=== PATIENT | male | born 1990 | race Caucasian/White ===

== ENCOUNTER 2019-11-20 12:31 | Outpatient (CLI) | payer SELFPAY ==
--- NOTE | 2019-11-20 12:41 | XR_ITS ---
WS: [id number] XR lumbar spine 2-3V* [id number] REASON FOR EXAM: LOW BACK PAIN FINDINGS: A rotoscoliosis convex to the left side at seen involving the thoracolumbar area. The disc spaces and vertebral bodies are all normal. No evidence of spondylolysis or spondylolisthesis . No fractures are seen. XR/XR lumbar spine 2-3V* [id number] IMPRESSION: Thoracolumbar rotoscoliosis convex to the left side.
== END 2019-11-20 12:32 | disposition home or self-care (01) ==
LOC: RAD 12:34
PROVIDERS: Visit Provider Nurse Practitioner Family
DX: M54.5 Low back pain (principal); M41.85 Other forms of scoliosis, thoracolumbar region
CPT/HCPCS: 72100

== ENCOUNTER 2019-12-25 08:25 | Outpatient (CLI) | payer SELFPAY ==
--- NOTE | 2019-12-25 09:00 | ECG_ITS ---
NAME OF STUDY: EXERCISE SESTAMIBI STRESS TEST INDICATION: Chest Pain, EXERCISE TREADMILL STRESS ORDERING PHYSICIAN: Yaya Ly CLINICAL INFORMATION: Unknown INTERPRETATION: 1. The patient exercised for 13 minutes and 15 seconds on a Obey protocol. He reached a maximum heart rate of 174 beats per minute, which is 92 % of his maximum predicted heart rate. The test was stopped due to achieving the desired heart rate. 2. The baseline electrocardiogram reveals normal sinus rhythm with LVH by voltage criteria. 3. With exercise, there were no ST segment changes to suggest ischemia. 4. The resting blood pressure was 124/66. The maximum blood pressure was 188/59. 5. At maximum exercise, the patient achieved 17.2 METs with a rate pressure product of 318. 6. The patient experienced no chest pain or arrhythmias during the examination. CONCLUSION: 1. Normal exercise treadmill test. 2. Average exercise capacity for age. 3. Normal blood pressure response to exercise. 4. Nuclear imaging to follow Electronically Signed On 12-25-2019 15:56:51 CDT by Viraj Will M.D. [email or web address]
--- NOTE | 2019-12-25 09:01 | NMCV_ITS ---
NM candi perf SPECT r/s* [id number] Derek Roberts Age: 29 Gender: M : 1990 Exam Date: 12/25/2019 09:01 Ordering Phys: Yaya Ly NP Technologist: SHAYY Hidalgo Exam Location: [facility] Indications: Chest pain STRESS TEST Please see separate stress test report in [facility] for full findings IMAGE PROTOCOL Rest/Stress 1 Exercise Day Radiopharmaceutical Dose (mCi) Administration Site Administered by Rest: Tc-99m 11.0 IV SHAYY Hidalgo Sestamibi Stress:Tc-99m 32.4 IV SHAYY Hidalgo Sestamibi Rest: 25-Dec-2019 60 Discovery 630 Stress: 25-Dec-2019 15 Discovery 630 Radiopharmaceutical was injected at 85 % maximum heart rate. Images obtained in supine and prone position. SPECT RESULTS Technical Quality: Good Raw Data Analysis: Normal Image Corrections: Patient motion artifact - motion correction applied to stress supine images Summed Stress Score: 6 Summed Rest Score: 0 Summed Difference Score: 6 PERFUSION FINDINGS Medium-sized area of patchy decreased tracer uptake noted in basal to mid inferoseptal and basal inferior wall on the rest images which improved significantly over stress images suggestive of artifact. Small area of fixed perfusion defect noted in the apex of the left ventricle suggestive of apical thinning artifact. FUNCTIONAL RESULTS (calculated via Gated SPECT) Stress Image LV EF (%): 37 Stress EDV (mL):102 TID: 1.03 Stress ESV (mL):64 Rest Image LV EF (%): 37 FUNCTIONAL FINDINGS: There appeared to be global hypokinesis IMPRESSIONS This study is negative for ischemia. EKG segment will be documented separately. Trevor Sanchez MD (Electronically Signed) Final Date: 26 December 2019 17:44 S
[2019-12-25 10:59] VITALS: BP 138/62; PULSE 99
== END 2019-12-25 08:26 | disposition home or self-care (01) ==
LOC: RAD 08:28
PROVIDERS: PCP Nurse Practitioner Family; Visit Provider Nurse Practitioner Family
DX: R07.89 Other chest pain (principal); R06.09 Other forms of dyspnea
CPT/HCPCS: 78452; 93017; A9500

== ENCOUNTER 2020-08-21 11:25 | Outpatient (CLI) | payer SELFPAY ==
--- NOTE | 2020-08-21 11:37 | XR_ITS ---
WS: [id number] Chest 2 views, 08/21/2020 Clinical Data: DYSPNEA ON EXERTION Comparison: None. Findings: No nodules, masses or effusions are seen. The heart is normal. The pulmonary vascularity is not increased. No pneumonia or pneumothorax is seen. XR/XR chest 2V* [id number] Impression: Negative chest.
== END 2020-08-21 11:26 | disposition home or self-care (01) ==
LOC: RAD 11:30
PROVIDERS: PCP Nurse Practitioner Family; Visit Provider Family Medicine
DX: R06.09 Other forms of dyspnea (principal)
CPT/HCPCS: 71046

== ENCOUNTER 2020-09-23 10:48 | Outpatient (CLI) | payer SELFPAY ==
--- NOTE | 2020-09-23 11:23 | PFTS_ITS ---
Date of Study:09/23/20 Date of Dictation: MECHANICS: Forced vital capacity (FVC) is normal. Forced expiratory volume in one second (FEV1) is normal. FEV1/FVC is normal. FLOW VOLUME LOOP: Normal. LUNG VOLUMES: Not measured DIFFUSING CAPACITY FOR CARBON MONOXIDE: Not measured. INTERPRETATION: The postbronchodilator spirometry is normal. There is no significant postbronchodilator response. MTDD
== END 2020-09-23 10:49 | disposition home or self-care (01) ==
LOC: RT 10:50
PROVIDERS: PCP Nurse Practitioner Family; Visit Provider Nurse Practitioner Family
DX: R06.09 Other forms of dyspnea (principal)
CPT/HCPCS: 94060; J7611

== ENCOUNTER 2021-05-15 09:54 | Outpatient (CLI) | payer MEDICAID, SELFPAY ==
--- NOTE | 2021-05-15 10:15 | MR_ITS ---
WS: [id number] MRI LUMBAR SPINE NONCONTRAST HISTORY: PARESTHESIA LEFT leg, BACK PAIN LUMBAR, CHRONIC COMPARISON: None available. TECHNIQUE: Sagittal and axial multisequence imaging is submitted. Moderate increase in the thoracic kyphosis. No fracture identified. Mild LEFT curvature lumbar spine. Disc spaces and vertebral body heights are maintained. No edema or fracture. Disc spaces and vertebral body heights are well-preserved. Conus terminates normally at L1-2 disc level. L1-L2: Normal. L2-L3: Normal. L3-L4: Mild ligamentum flavum and facet arthritis. Very mild narrowing of the LEFT foramen. L4-L5: Mild ligamentum flavum hypertrophy with mild foraminal narrowing. L5-S1: Mild annular disc bulging. There is a very shallow disc protrusion in the LEFT subarticular re cess. Protrusion minimally contacts the exiting LEFT L5 nerve root but does not displace it. No signi ficant stenosis. Visualized retroperitoneum is normal. MR/MR lumbar spine wo con* [id number] IMPRESSION: 1. Very small disc protrusion in the LEFT subarticular recess of L5-S1. Very s light narrowing of the LEFT L5 subarticular recess and foramen. Very minimal di sc contact of LEFT L5 nerve root. 2. Mild LEFT foraminal narrowing at L3-4 and bilaterally at L4-5.
== END 2021-05-15 09:55 | disposition home or self-care (01) ==
PROVIDERS: PCP Family Medicine; Visit Provider Family Medicine
DX: R20.2 Paresthesia of skin (principal); M51.27 Other intervertebral disc displacement, lumbosacral region
CPT/HCPCS: 72148

== ENCOUNTER → 2021-05-28 11:06 | Outpatient (BNVA) | payer MEDICAID, SELFPAY | PROVIDERS: PCP Family Medicine; Referring Provider Family Medicine; Visit Provider Orthopaedic Surgery | DX: M54.50 Low back pain, unspecified (principal) | CPT/HCPCS: 72110 ==

== ENCOUNTER → 2021-06-03 08:44 | Outpatient (BNVA) | payer MEDICAID, SELFPAY | PROVIDERS: PCP Family Medicine; Visit Provider Anesthesiology Pain Medicine | DX: G89.29 Other chronic pain (principal); M48.062 Spinal stenosis, lumbar region with neurogenic claudication; M47.816 Spondylosis without myelopathy or radiculopathy, lumbar region; M51.16 Intervertebral disc disorders with radiculopathy, lumbar region; M79.605 Pain in left leg; F17.210 Nicotine dependence, cigarettes, uncomplicated | CPT/HCPCS: 99204 ==

== ENCOUNTER 2021-06-30 12:11 | Outpatient (RCR) | payer MEDICAID, SELFPAY | END 2021-07-17 23:59 | disposition home or self-care (01) | LOC: TPT 12:11 | PROVIDERS: PCP Family Medicine; Referring Provider Orthopaedic Surgery; Visit Provider Orthopaedic Surgery | DX: M54.50 Low back pain, unspecified (principal); G89.29 Other chronic pain | CPT/HCPCS: 97032; 97110; 97163; 97164; 97530 ==

== ENCOUNTER → 2021-09-02 10:43 | Outpatient (BNVA) | payer MEDICAID, SELFPAY | PROVIDERS: PCP Family Medicine; Visit Provider Anesthesiology Pain Medicine | DX: G89.29 Other chronic pain (principal); M79.18 Myalgia, other site; M51.17 Intervertebral disc disorders with radiculopathy, lumbosacral region; M48.062 Spinal stenosis, lumbar region with neurogenic claudication; M47.816 Spondylosis without myelopathy or radiculopathy, lumbar region; M51.16 Intervertebral disc disorders with radiculopathy, lumbar region; M79.605 Pain in left leg; F17.210 Nicotine dependence, cigarettes, uncomplicated | CPT/HCPCS: 20553; 99214; J1030; J3490 ==

== ENCOUNTER → 2021-09-18 10:38 | Outpatient (BNVA) | payer MEDICAID, SELFPAY | PROVIDERS: PCP Family Medicine; Visit Provider Internal Medicine Pulmonary Disease | DX: J44.9 Chronic obstructive pulmonary disease, unspecified (principal); R06.02 Shortness of breath; F17.210 Nicotine dependence, cigarettes, uncomplicated; Z71.6 Tobacco abuse counseling | CPT/HCPCS: 36415; 82103; 82785; 85025; 86003; 99214 ==

== ENCOUNTER → 2021-09-23 12:34 | Outpatient (BNVA) | payer MEDICAID, SELFPAY | PROVIDERS: PCP Family Medicine; Visit Provider Anesthesiology Pain Medicine | DX: G89.29 Other chronic pain (principal); M54.16 Radiculopathy, lumbar region; F17.210 Nicotine dependence, cigarettes, uncomplicated | CPT/HCPCS: 64483; 64484; J1100; J3490 ==

== ENCOUNTER → 2021-11-17 10:17 | Outpatient (BNVA) | payer MEDICAID, SELFPAY | PROVIDERS: PCP Family Medicine; Visit Provider Internal Medicine Cardiovascular Disease | DX: R06.00 Dyspnea, unspecified (principal); I10 Essential (primary) hypertension; F12.10 Cannabis abuse, uncomplicated; M51.16 Intervertebral disc disorders with radiculopathy, lumbar region; F17.210 Nicotine dependence, cigarettes, uncomplicated; L81.9 Disorder of pigmentation, unspecified; R07.89 Other chest pain | CPT/HCPCS: 93005; 99204; 99205 ==

== ENCOUNTER → 2021-11-24 11:02 | Outpatient (BNVA) | payer MEDICAID, SELFPAY | PROVIDERS: PCP Family Medicine; Visit Provider Anesthesiology Pain Medicine | DX: G89.29 Other chronic pain (principal); M51.17 Intervertebral disc disorders with radiculopathy, lumbosacral region; M51.16 Intervertebral disc disorders with radiculopathy, lumbar region; M48.062 Spinal stenosis, lumbar region with neurogenic claudication; M47.816 Spondylosis without myelopathy or radiculopathy, lumbar region; M79.605 Pain in left leg | CPT/HCPCS: 99213 ==

== ENCOUNTER 2021-12-31 19:04 | Emergency (ER) | payer MEDICAID, SELFPAY ==
[2021-12-31 19:56] VITALS: BP 135/80; PULSE 77; RESP 16; TEMP 37.1; O2SAT 98; BMI 23.6
--- NOTE | 2021-12-31 20:01 | XRR_ITS ---
PROCEDURE INFORMATION: Exam: XR Right Ankle Exam date and time: 12/31/2021 9:29 PM Age: 31 years old Clinical indication: Injury or trauma; Fall; Sprain or strain; Right; Patient HX: Patient tripped over a log and rolled ankle. C/O pain with bruising to lateral side of ankle. TECHNIQUE: Imaging protocol: Radiologic exam of the Right ankle. Views: 3 or more views. COMPARISON: No relevant prior studies available. FINDINGS: Bones/joints: Distention of the ankle joint capsule consistent with posttraumatic joint effusion and/or ligamentous disruption. Soft tissues: Soft tissue swelling over the lateral malleolus. XR/XR ankle RT min 3V* [id number] IMPRESSION: 1. Soft tissue swelling over the lateral malleolus. 2. Distention of the ankle joint capsule consistent with posttraumatic joint effusion and/or ligamentous disruption.
--- NOTE | 2021-12-31 20:01 | ED_ITS ---
HPI - Extremity Problem General: Chief complaint: Extremity Injury, Lower Stated complaint: injured R ankle Time Seen by Provider: 12/31/21 19:59 History of Present Illness: 31-year-old male patient comes in today for injury to the knee. Patient was stepping off a log when the rug rolled causing him to misstep and injured his right ankle. Patient has significant bruising and swelling to the lateral aspect of the right ankle. Patient appears well. Patient peers in mild pain. Patient appears nontoxic. Review of Systems General: Reports: 10 or more systems reviewed and unremarkable except in HPI and below Musc: Reports: extremity pain PFS ED PFSH: Medical History Chronic obstructive pulmonary disease Dyspnea on exertion Hypertension Family History Mother No problems noted. Father CAD (coronary artery disease), Onset Age: 30 Grandmother Clotting disorder Grandfather CAD (coronary artery disease) Clotting disorder Lung disease Family/Other Diabetes Lung disease Suicide Other Cancer Denies family history of Dementia Anesthesia complication Bleeding disorder Stroke Social History Smoking and tobacco status: current every day smoker cigarettes Packs smoked per day: 3 Years cigarettes smoked: 19 [ Other cigarette details: currently smoking 1ppd ] Quit status (tobacco): considering quitting Second hand smoke exposure: Yes Smoking risk assessment/counseling performed?: No Alcohol intake: never Counseling given: No Desire information about substance/drug rehabilitation?: No Counseling given: Yes Lives independently: Yes Household members: spouse Marital status: Current occupational status: unemployed History of recent travel: No Physical Exam Const: COMMON NORMALS: alert HENMT: COMMON NORMALS: normocephalic HEAD & SCALP: normal to inspection and normocephalic Neck/C-Spine: COMMON NORMALS: full ROM Resp: COMMON NORMALS: normal respiratory effort and clear to auscultation bilaterally AUSCULTATION: clear to auscultation bilaterally Cardio: COMMON NORMALS: regular rate RATE: regular rate : COMMON NORMALS: Yes no CVA tenderness BLADDER/KIDNEY EXAM: Yes no CVA tenderness Back/Pelvis: COMMON NORMALS: no CVA tenderness Extremity: RIGHT LOWER EXTREMITY: Yes foot & digits (Swelling and ecchymosis is noted to the lateral aspect of the ankle extendi) Right ankle: Yes inspection, Yes palpation, Yes ROM (Decreased range of motion) and Yes neurovascular exam Neuro: SENSORIUM/ORIENTATION: Yes alert Skin: COMMON NORMALS: no rashes or lesions noted GENERAL SKIN EXAM: no rashes or lesions noted Course Vital Signs: Vital signs: Vital Signs Temperature 98.8 F 12/31/21 19:56 Pulse Rate 77 12/31/21 19:56 Respiratory Rate 16 12/31/21 19:56 Blood Pressure 135/80 12/31/21 19:56 Pulse Oximetry 98 12/31/21 19:56 MDM - Extremity (Nontraumatic) Medical Decision Making 31-year-old male patient comes in today with injury to the right ankle. On exam patient has extensive bruising and swelling to the lateral right ankle. Distal pulses and sensation are intact. Differential diagnosis includes but not limited to fracture, sprain, contusion, dislocation. X-ray noted no obvious fracture. Patient was put in a elastic bandage and crutches and recommended to follow-up with primary care in 3 to 5 days for recheck. At that time they may go on to repeat the x-ray to rule out fracture completely due to the increased swelling and ecchymosis. Patient and family both reported understanding. Discharge Plan Discharge Patient Disposition: Home Clinical Impression: Ankle sprain and strain Condition: Stable Prescriptions: No Action Nhungdeliciai Aerosphere 160-9-4.8 mcg/actuation HFA aerosol inhaler 2 inh inhalation BID Qty: 10.7 3RF losartan 25 mg tablet 25 mg PO DAILY 0RF aspirin 81 mg tablet,delayed release (DR/EC) 81 mg PO DAILY 0RF nitroglycerin 0.4 mg tablet, sublingual 0.4 mg sublingual Q5M PRN0RF Rx Instructions: do not exceed 3 doses per episode albuterol sulfate [ProAir HFA] 90 mcg/actuation HFA aerosol inhaler 2 puff inhalation Q6H PRN0RF albuterol sulfate 2.5 mg /3 mL (0.083 %) solution for nebulization 2.5 mg inhalation QID PRN (Reason: shortness of breath or wheezing) 0RF duloxetine 60 mg capsule,delayed release(DR/EC) 60 mg PO BID 0RF nicotine 21-14-7 mg/24 hr patch, TD daily, sequential See Rx Instructions transdermal .COMPLEX Qty: 56 0RF Rx Instructions: apply 1-21 mg NICOTINE PATCH daily for 28 days; follow with 1-14 mg PATCH daily for 14 days, then 1-7mg PATCH daily for 14 days transdermal tizanidine 4 mg tablet 4 mg PO BID PRN (Reason: muscle spasticity) Qty: 60 2RF meloxicam 15 mg tablet 15 mg PO DAILY Qty: 30 2RF gabapentin 600 mg tablet 600 mg PO TID Qty: 90 2RF Discharge Orders: Discharge ED (Routine); Ordered 12/31/21 Ordered By: Shaan Angela Referrals: Naun Sanchez MD [Primary Care Provider] - Discharge Diet: Usual diet Discharge Activity: Increase activity as tolerated Patient Instructions: Ankle Sprain (ED) Activity Restrictions/Additional Instructions: Home and rest. Elevate and use ice packs on and off for the next 2 days. Use acetaminophen and ibuprofen for pain. Follow-up with primary care in 1 week for recheck. Return to ER for new concerns. Coding Level of Care Code ED Chip Unloader for Gracy Fwd Exam Comprehensive
== END 2021-12-31 21:59 | disposition home or self-care (01) ==
PROVIDERS: Emergency Provider Nurse Practitioner Family; PCP Family Medicine
DX: S93.401A Sprain of unspecified ligament of right ankle, initial encounter (principal); X58.XXXA Exposure to other specified factors, initial encounter
CPT/HCPCS: 73610; 99283; E0114

== ENCOUNTER 2022-01-04 13:50 | Outpatient (CLI) | payer MEDICAID, SELFPAY ==
--- NOTE | 2022-01-04 14:01 | XR_ITS ---
WS: [id number] Exam: XR ankle RT min 3V* [id number] Date/Time of Exam: 01/04/2022 2:05 PM Reason For Exam: R ANKLE PAIN Comparison 12/31/2021. No acute fracture or dislocation. The ankle mortise is well-maintained. Lateral soft tissue swelling and joint effusion noted. XR/XR ankle RT min 3V* [id number] IMPRESSION: 1. No fracture. Lateral soft tissue swelling and joint effusion.
== END 2022-01-04 13:51 | disposition home or self-care (01) ==
LOC: RAD 13:51
PROVIDERS: PCP Family Medicine; Visit Provider Family Medicine
DX: M25.471 Effusion, right ankle (principal); M25.571 Pain in right ankle and joints of right foot
CPT/HCPCS: 73610

== ENCOUNTER → 2022-01-07 11:05 | Outpatient (BNVA) | payer MEDICAID, SELFPAY | PROVIDERS: PCP Family Medicine; Visit Provider Anesthesiology Pain Medicine | DX: G89.29 Other chronic pain (principal); M48.062 Spinal stenosis, lumbar region with neurogenic claudication; M47.816 Spondylosis without myelopathy or radiculopathy, lumbar region; M51.16 Intervertebral disc disorders with radiculopathy, lumbar region; S93.402A Sprain of unspecified ligament of left ankle, initial encounter; S96.912A Strain of unspecified muscle and tendon at ankle and foot level, left foot, initial encounter; W20.8XXA Other cause of strike by thrown, projected or falling object, initial encounter; F17.210 Nicotine dependence, cigarettes, uncomplicated | CPT/HCPCS: 99214 ==

== ENCOUNTER → 2022-01-20 11:21 | Outpatient (BNVA) | payer MEDICAID, SELFPAY | PROVIDERS: PCP Family Medicine; Visit Provider Internal Medicine Cardiovascular Disease | DX: R07.9 Chest pain, unspecified (principal); R06.02 Shortness of breath; F17.210 Nicotine dependence, cigarettes, uncomplicated; L81.9 Disorder of pigmentation, unspecified | CPT/HCPCS: 99213 ==

== ENCOUNTER 2022-01-25 06:00 | Outpatient (CLI) | payer MEDICAID, SELFPAY | END 2022-01-25 06:01 | disposition home or self-care (01) | LOC: RAD 04-26 21:16 | PROVIDERS: PCP Family Medicine; Visit Provider Internal Medicine Cardiovascular Disease | DX: G89.29 Other chronic pain (principal); M54.16 Radiculopathy, lumbar region; F17.210 Nicotine dependence, cigarettes, uncomplicated | CPT/HCPCS: 64483; 64484; J1100; J3490 ==

== ENCOUNTER 2022-02-08 08:51 | Outpatient (CLI) | payer MEDICAID, SELFPAY ==
--- NOTE | 2022-02-08 08:45 | USCV_ITS ---
Derek Roberts Age: 31 Gender: M : 1990 Exam Date: 02/08/2022 09:20 Ordering Phys: Karen Gabriel MD ([email or web address]) Technologist: Emily Retana [place] [facility] [place]ication: Discolored toes Risk Factors: Smoker Previous Vascular Surgery: Unknown RIGHT LEFT BP: 128.0 / BP: 125.0/ 0 0 Waveform Velocity (cm/s) Velocity (cm/s) Waveform Triphasic 99.2 Iliac Prox Triphasic Iliac Mid 86.2 Triphasic 80.2 Iliac Distal Triphasic 71.1 BUS TRANSPORTATION MANAGER Triphasic 71.1 SFA Prox Triphasic 78.1 SFA Mid Triphasic 74.1 SFA Dist Triphasic POP 53.1 Triphasic 48.1 GLASS EDGER Triphasic 33.1 DPA 1.2 HAM 1.2 FINDINGS see TBIs on seperate sheet. rt digit tbi .80 tbi lt .94 Normal resting HAM of 1.2 on the right and 1.2 on the left. Normal arterial Doppler waveforms and velocities on the right side Normal resting TBI's bilaterally CONCLUSIONS Normal resting ABIs and TBIs, bilaterally suggesting no significant arterial obstruction. Normal arterial Doppler waveforms and velocities on the right side Dr Karen Gabriel MD [facility] (Electronically Signed) Final Date: 08 February 2022 13:32 S
== END 2022-02-08 08:52 | disposition home or self-care (01) ==
LOC: RAD 08:51
PROVIDERS: PCP Family Medicine; Visit Provider Internal Medicine Cardiovascular Disease
DX: G89.29 Other chronic pain (principal); M51.16 Intervertebral disc disorders with radiculopathy, lumbar region; M51.17 Intervertebral disc disorders with radiculopathy, lumbosacral region; M48.062 Spinal stenosis, lumbar region with neurogenic claudication; M47.816 Spondylosis without myelopathy or radiculopathy, lumbar region; S93.409A Sprain of unspecified ligament of unspecified ankle, initial encounter; S96.919A Strain of unspecified muscle and tendon at ankle and foot level, unspecified foot, initial encounter; X58.XXXA Exposure to other specified factors, initial encounter; M79.605 Pain in left leg; F17.210 Nicotine dependence, cigarettes, uncomplicated; R07.9 Chest pain, unspecified
CPT/HCPCS: 93926; 99214

== ENCOUNTER → 2022-02-23 14:04 | Outpatient (BNVA) | payer MEDICAID, SELFPAY | PROVIDERS: PCP Family Medicine; Visit Provider Orthopaedic Surgery | DX: M48.062 Spinal stenosis, lumbar region with neurogenic claudication (principal) | CPT/HCPCS: 72050; 99214 ==

== ENCOUNTER 2022-03-18 06:00 | Outpatient (CLI) | payer MEDICAID, SELFPAY | END 2022-03-18 06:01 | disposition home or self-care (01) | LOC: RT 04-15 10:42 | PROVIDERS: PCP Family Medicine; Visit Provider Orthopaedic Surgery | DX: Z01.89 Encounter for other specified special examinations (principal) | CPT/HCPCS: 93005 ==

== ENCOUNTER 2022-03-24 09:03 | Outpatient (CLI) | payer MEDICAID, SELFPAY ==
--- NOTE | 2022-03-24 09:16 | USCV_ITS ---
Derek Roberts Age: 31 Gender: M : 1990 Exam Date: 03/24/2022 09:47 Ordering Phys: Karen Gabriel MD ([email or web address]) Technologist: [place] [facility] [place]: afib BP: 124 / 73 HR: 71 Rhythm: Sinus Technical Quality: Adequate MEASUREMENTS (Male / Female) Normal Values 2D ECHO LV Diastolic Diameter PLAX 4.1 cm 4.2 - 5.9 / 3.9 - 5.3 cm LV Systolic Diameter PLAX 3.0 cm IVS Diastolic Thickness 1.1 cm 0.6 - 1.0 / 0.6 - 0.9 cm IVS Systolic Thickness 1.2 cm LVPW Diastolic Thickness 0.9 cm 0.6 - 1.0 / 0.6 - 0.9 cm LVPW Systolic Thickness 1.3 cm LVOT Diameter 2.1 cm LV Ejection Fraction 2D Teich 53.1 % LV Ejection Fraction MOD 2C 67.6 % LV Ejection Fraction 2C AL 67.9 % LA Diameter 3.8 cm Aorta at Sinotubular Diameter 2.9 cm IVC Diameter 1.3 cm M-MODE Aortic Annulus Diameter 3.6 cm LA Ao Ratio MM 1.0 MV E Point Septal Separation 1.2 cm DOPPLER AV Peak Velocity 131.0 cm/s LVOT Peak Velocity 92.0 cm/s AV Area Cont Eq vti 2.3 cm squared AV Area Cont Eq pk 2.4 cm squared MV Area PHT 3.7 cm squared Mitral E to A Ratio 1.3 MV E' Velocity 43.5 cm/s Mitral E to MV E' Ratio 6.6 Mitral E to LV E' Lateral Ratio 5.7 Mitral E to LV E' Septal Ratio 7.7 TR Peak Velocity 176.0 cm/s TR Peak Gradient 12.4 mmHg TV Peak E Velocity 98.0 cm/s Right Atrial Pressure 3.0 mmHg Pulmonary Artery Systolic Pressu 15.4 mmHg RV Acceleration Time 0.2 s FINDINGS Left Ventricle Left ventricle is normal in size. LV systolic function is normal with EF 55 to 60%. No regional wall motion abnormalities are seen. Right Ventricle RV is normal in size and function. Right Atrium Normal in size Left Atrium Normal in size Mitral Valve Structurally normal mitral valve. Trace MR Aortic Valve Normal aortic valve. No significant stenosis or regurgitation is seen. Tricuspid Valve Trace tricuspid regurgitation. Insufficient TR jet to calculate RVSP. Pulmonic Valve Not well-visualized Pericardium Normal Aorta Normal in size IVC IVC appears normal CONCLUSIONS LV systolic function is normal with EF 55 to 60%. Trace mitral regurgitation is seen. Trace tricuspid regurgitation is seen. No comparison studies are available Ethan Sparks MD (Electronically Signed) Final Date: 05 April 2022 11:21 S
== END 2022-03-24 09:04 | disposition home or self-care (01) ==
PROVIDERS: PCP Family Medicine; Visit Provider Internal Medicine Cardiovascular Disease
DX: I48.91 Unspecified atrial fibrillation (principal)
CPT/HCPCS: 93306

== ENCOUNTER 2022-03-26 08:28 | Day surgery (SDC) | payer MEDICAID, SELFPAY ==
[2022-03-18 10:28] VITALS: BMI 23.9
--- NOTE | 2022-03-18 10:36 | ECG_ITS ---
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 Measurements Intervals [place] Rate: 62 P: IN: QRS: 63 QRSD: 93 T: 46 QT: 377 QTc: 384 Interpretive Statements Multifocal atrial rhythm ABNORMAL RHYTHM ECG No previous ECG available for comparison Electronically Signed On 03-19-2022 15:45:53 CDT by Karen Gabriel M.D. [id number]
[2022-03-18 11:27] LABS: Basophils # 0.1 10^3/uL (0.0-0.1); Basophils % 0.9 %; Eosinophils # 0.1 10^3/uL (0.0-0.8); Eosinophils % 1.8 %; Hematocrit 42.3 % (42.0-52.0); Hemoglobin 14.5 g/dL (11.7-16.6); Lymphocytes # 1.8 10^3/uL (0.8-4.8); Lymphocytes % 23.5 %; Mean Corpuscular HGB Conc 34.3 g/dL (30.0-36.0); Mean Corpuscular Hemoglobin 30.8 pg (28.0-34.0); Mean Corpuscular Volume 89.8 fl (80-94); Monocytes # 0.6 10^3/uL (0.2-0.9); Monocytes % 7.5 %; Neutrophils # 5.07 10^3/uL (1.8-7.7); Nucleated Red Blood Cells % 0 %; Platelet Count 273 10^3/cmm (130-400); Red Blood Count 4.71 10^6/uL (4.1-5.3); Red Cell Distribution Width 12.8 % (12.1-15.1); White Blood Count 7.7 10^3/uL (4.0-10.0)
--- NOTE | 2022-03-18 11:39 | ANES.PREANE2 ---
Pre-Anesthetic Assessment Height/Weight: Height 1.75 m Weight 73.482 kg Preop Diagnosis: lumbar stenosis Operation Date: 03/26/22 07:00 Proposed Procedures p Lumbar Spine [id number]/42309/M48.062/L4/5 L5/S1(Left) - Kapil Monzon DO Familial anesthetic complications: none Was Beta Jasmin taken within 24 hours: N/A Was Clonidine taken within 24 hours: N/A Social Tobacco and No alcohol (7 years since last drink ) Airway Submandibular: within normal limits Cervical ROM: within normal limits Mallampati: Class I Dentition: false Pulmonary Chronic Obstructive Pulmonary Disease, Exertional Dyspnea and Shortness of Breath No home O2 CV/HEM Hypertension Stress test and TTE ordered by operations research scientist, however per patient insurance denied. Tried to coordinate further evaluation today, however assured by Doctor Gabriel's RN that Doctor Gabriel did a peer review however insurance denied. Doctor Gabriel's RN said that she would ask him to look into his case for assessment for surgery. METS < 4 d/t SOB EKG 03/18/22 Interpretive Statements ATRIAL FIBRILLATION ABNORMAL RHYTHM ECG No previous ECG available for comparison [id number] Stress test 2019 CONCLUSION: 1. Normal exercise treadmill test. 2. Average exercise capacity for age. 3. Normal blood pressure response to exercise. 4. Nuclear imaging to follow None reported Hepatic None reported GI None reported Metabolic None reported Musc/skel Lower Back Pain and Osteoarthritis/DJD Anesthetic Plan ASA status: 3 Anesthesia: Anesthesia Evaluation and General Other: We discussed risk and benefits of general anesthesia including PONV, sore throat (sometimes severe), corneal abrasion, positioning and peripheral nerve injuries, life threatening allergic reaction, post operative ICU admission requiring prolonged intubation, aspiration, stroke, heart attack, , and rare incidences of recall. Patient consents to proceed with general anesthesia. Cardiac clearance pending Risk of > 500 ml blood loss (7ml/kg in children): No Medications/Allergies Home Medications Medication Instructions Recorded Confirmed Last Taken Type albuterol sulfate 2.5 mg inhalation QID PRN 09/12/20 03/18/22 Unknown History shortness of breath or wheezing albuterol sulfate 90 mcg/actuation 2 puff inhalation Q6H PRN sob 09/12/20 03/18/22 Unknown History aerosol inhaler (ProAir HFA) aspirin 81 mg tablet,delayed 81 mg PO DAILY 09/12/20 03/18/22 Unknown History release nitroglycerin 0.4 mg sublingual 0.4 mg sublingual Q5M PRN Chest 09/12/20 03/18/22 Unknown History tablet Pain duloxetine 60 mg capsule,delayed 60 mg PO BID 05/28/21 03/18/22 Unknown History release budesonide 160 mcg-glycopyr 9 2 inh inhalation BID #10.7 grams 09/18/21 03/18/22 Unknown Rx mcg-formot 4.8 mcg/actuation HFA inhaler (Breztri Aerosphere) losartan 25 mg tablet 25 mg PO DAILY 11/17/21 03/18/22 Unknown History MARIJUIANA inhalation 01/25/22 02/23/22 Unknown History gabapentin 600 mg tablet 600 mg PO TID #90 tabs 02/08/22 03/18/22 Unknown Rx isosorbide mononitrate 30 mg 30 mg PO DAILY 02/08/22 03/18/22 Unknown History tablet,extended release 24 hr meloxicam 15 mg tablet 15 mg PO DAILY #30 tabs 02/08/22 03/18/22 Unknown Rx tizanidine 4 mg tablet 4 mg PO BID PRN muscle spasticity 02/08/22 03/18/22 Unknown Rx #60 tabs Allergies Allergy/AdvReac Type Severity Reaction Status Date / Time No Known Allergies Allergy Verified 03/18/22 10:23 [facility] Anesthesia Medical History Chronic obstructive pulmonary disease Dyspnea on exertion Hypertension Family History Mother No problems noted. Father CAD (coronary artery disease), Onset Age: 30 Grandmother Clotting disorder Grandfather CAD (coronary artery disease) Clotting disorder Lung disease Family/Other Diabetes Lung disease Suicide Other Cancer Denies family history of Dementia Anesthesia complication Bleeding disorder Stroke Social History Smoking and tobacco status: current every day smoker cigarettes Packs smoked per day: 1.5 Quit status (tobacco): considering quitting Smoking risk assessment/counseling performed?: No Alcohol intake: never Counseling given: No Desire information about substance/drug rehabilitation?: No Counseling given: Yes Lives independently: Yes Household members: spouse Marital status: Current occupational status: unemployed History of recent travel: No Data Anesthesia : 03/18/22 11:00 03/18/22 11:00 Short CBC 03/18/22 Range/Units 11:00 WBC 7.7 (4.0-10.0) 10^3/uL Hgb 14.5 (11.7-16.6) g/dL Hct 42.3 (42.0-52.0) % MCV 89.8 (80-94) fl Plt Count 273 (130-400) 10^3/cmm Neut % (Auto) 66.0 % Neut # (Auto) 5.07 (1.8-7.7) 10^3/uL Cardiac Studies: Sestamibi Stress Test (Cardiology) 12/25/19
[2022-03-18 11:51] LABS: Anion Gap 10.1 (5-19); Blood Urea Nitrogen 8 mg/dL (6-20); Calcium 9.2 mg/dL (8.5-10.5); Carbon Dioxide 28 mmol/L (22-29); Chloride 105 mmol/L (98-107); Glomerular Filtration Rate 191.5 mL/min (90-130); Glucose 98 mg/dL (65-115); Osmolality Calculated 286 mOsm/kg (285-295); Potassium 4.1 mmol/L (3.5-5.1); Sodium 139 mmol/L (136-145)
--- NOTE | 2022-03-18 13:36 | PC.NURSE ---
Dr. Gibbs wanting echo done prior to surgery on mar. Called scheduling he is scheduled for mar at 9 am. Called patient talked to his life partner Aleyda and informed her of Echo scheduled and date and time.
[2022-03-26] VITALS (9 sets, daily range): BP systolic 127–156; BP diastolic 84–98; PULSE 67–106; RESP 13–24; TEMP 36.4–36.9; O2SAT 97–100
--- NOTE | 2022-03-26 | XR_ITS ---
WS: [id number] Lumbar spine, C-arm fluoroscopy, 03/26/2022 Clinical Data: left sided L4-5 L4-S1 decompression Comparison: None. Findings: Dr. Monzon performed a lumbar decompression. XR/XR lumbar spine 1V [id number] Impression: Lumbar decompression.
--- NOTE | 2022-03-26 | SCC_ITS ---
Procedure done: 1. L4/5 laminectomy with partial facetectomy 2. L5/S1 laminectomy with partial facetectomy 19.5 seconds of fluoroscopic guidance, for a cumulative dose of 5.90 mGy, was provided to Dr. Monzon by the radiology department. C-arm images of the lumbar spine were saved for the patient's permanent record. [facility]
[2022-03-26] MEDS: sodium chloride 0.9% 1,000 ML 30 ML IV (09:04)
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
[2022-03-26] MEDS: ceFAZolin 2,000 MG in sodium chloride 0.9% (plus) 50 ML 100 MG IV (09:43)
--- NOTE | 2022-03-26 10:17 | ANES.PREANE2 ---
Pre-Anesthetic Assessment Height/Weight: Height 1.75 m Weight 73.482 kg Temp Pulse Resp BP Pulse Ox O2 Del Method 98.1 F 71 16 127/84 97 03/26/22 08:45 03/26/22 08:45 03/26/22 08:45 03/26/22 08:45 03/26/22 08:45 03/26/22 08:52 Preop Diagnosis: Lumbar stenosis with neurogenic claudication Operation Date: 03/26/22 09:50 Proposed Procedures p Lumbar Spine [id number]/M48.062/L4/5 L5/S1(Left) - Kapil Monzon DO Familial anesthetic complications: none Was Beta Jasmin taken within 24 hours: N/A Was Clonidine taken within 24 hours: N/A Last intake: Intake Last Liquid Date 03/25/22 Last Liquid Time 23:45 Last Solid Date 03/25/22 Last Solid Time 21:00 Social Tobacco (mikal) and No alcohol Exam alert, oriented x 3 and regular rate & rhythm Airway Submandibular: within normal limits Cervical ROM: within normal limits Mallampati: Class II Dentition: false Pulmonary Chronic Obstructive Pulmonary Disease CV/HEM Hypertension [facility] Lower Back Pain Anesthetic Plan ASA status: 3 Anesthesia: General Medications/Allergies Home Medications Medication Instructions Recorded Confirmed Last Taken Type albuterol sulfate 2.5 mg inhalation QID PRN 09/12/20 03/18/22 Unknown History shortness of breath or wheezing albuterol sulfate 90 mcg/actuation 2 puff inhalation Q6H PRN sob 09/12/20 03/18/22 Unknown History aerosol inhaler (ProAir HFA) aspirin 81 mg tablet,delayed 81 mg PO DAILY 09/12/20 03/26/22 03/23/22 08:00 History release nitroglycerin 0.4 mg sublingual 0.4 mg sublingual Q5M PRN Chest 09/12/20 03/18/22 Unknown History tablet Pain duloxetine 60 mg capsule,delayed 60 mg PO BID 05/28/21 03/26/22 03/25/22 History release budesonide 160 mcg-glycopyr 9 2 inh inhalation BID #10.7 grams 09/18/21 03/26/22 03/25/22 Rx mcg-formot 4.8 mcg/actuation HFA inhaler (Breztri Aerosphere) losartan 25 mg tablet 25 mg PO DAILY 11/17/21 03/26/22 03/25/22 History MARIJUIANA inhalation 01/25/22 02/23/22 Unknown History gabapentin 600 mg tablet 600 mg PO TID #90 tabs 02/08/22 03/26/22 03/25/22 Rx isosorbide mononitrate 30 mg 30 mg PO DAILY 02/08/22 03/26/22 03/25/22 History tablet,extended release 24 hr meloxicam 15 mg tablet 15 mg PO DAILY #30 tabs 02/08/22 03/26/22 03/25/22 Rx tizanidine 4 mg tablet 4 mg PO BID PRN muscle spasticity 02/08/22 03/26/22 03/25/22 Rx #60 tabs Allergies Allergy/AdvReac Type Severity Reaction Status Date / Time No Known Allergies Allergy Verified 03/18/22 10:23 Current Medications Generic Name Dose Route Start Last Admin Trade Name Freq PRN Reason Stop Dose Admin Sodium Chloride 1,000 mls @ 30 mls/hr 03/26/22 08:45 03/26/22 09:04 Sodium Chloride 0.9% IV 03/27/22 08:44 30 mls/hr .Q24H OKSANA Administration PFSH Anesthesia Medical History Chronic obstructive pulmonary disease Dyspnea on exertion Hypertension Family History Mother No problems noted. Father CAD (coronary artery disease), Onset Age: 30 Grandmother Clotting disorder Grandfather CAD (coronary artery disease) Clotting disorder Lung disease Family/Other Diabetes Lung disease Suicide Other Cancer Denies family history of Dementia Anesthesia complication Bleeding disorder Stroke Social History Smoking and tobacco status: current every day smoker cigarettes Packs smoked per day: 1.5 Quit status (tobacco): considering quitting Smoking risk assessment/counseling performed?: No Alcohol intake: never Counseling given: No Desire information about substance/drug rehabilitation?: No Counseling given: Yes Lives independently: Yes Household members: spouse Marital status: Current occupational status: unemployed History of recent travel: No Data Anesthesia : 03/18/22 11:00 03/18/22 11:00 Cardiac Studies: Sestamibi Stress Test (Cardiology) 12/25/19
[2022-03-26] MEDS: HYDROmorphone 1 mg/mL INJ 1 mL 0.5 MG IVP (11:00)
--- NOTE | 2022-03-26 11:08 | P.OP_ITS ---
Operative Report Date of procedure: March 26, 2022 Pre-op diagnosis: Preop Diagnosis Lumbar stenosis with neurogenic claudication Post-op diagnosis: same Procedure done: 1. L4/5 laminectomy with partial facetectomy 2. L5/S1 laminectomy with partial facetectomy Surgeon: Kapil Monzon Director Of Quantitative Research: Jared Winchester Director Of Quantitative Research: The surgical elastic knitter, Jared Winchester, PAC was needed for his expertise under the microscope. He was important and necessary throughout the procedure to complete in a safe and timely manner. He assisted with patient positioning prepping and draping tissue retraction suctioning of the operative field protection of the dural sac and tissue closure Estimated blood loss (mL): 5 Procedure: 1. L4/5 laminectomy with partial facetectomy 2. L5/S1 laminectomy with partial facetectomy Patient is brought to the operative suite. After undergoing anesthesia they are placed in the prone position. All areas of impingement are well padded. Patient is then prepped and draped in the normal sterile fashion. A skin incision is made over the L4/5 level. This is confirmed under c-arm guidance. A series of dilators are passed and the tubular retractor is docked on the L4 lamina. A bovie is used to clear the soft tissue off the lamina and the L 4/5 facet joint. A high speed jayla is then used to perform the laminecto my and take down the medial aspect of the L 4/5 facet joint. A kerrison rongeure was then used to take down the remaining lamina and smooth the edge of the laminectomy up to the point where the ligamentum flavum attaches. Attention was then brought to the medial aspect of the facet joint. The remaining medial aspect of the superior and inferior aspect of the facet joint were taken down with the kerrison from the pedicle of L4 to L 5. The facet joint had significant hypertrophy. Attention was then brought to the Ligamentum Flavum. The ligament was taken down from the lamina of L4 to L5 and out medially to the remaining facet joint. The ligament was thick. The dura was then exposed. The dura was in good repair. The L4 nerve was then traced with a curette out the L4/5 foramen and found to be adequately decompressed. The L5 nerve was traced with a curette around the L5 pedicle. The lateral recess was opened with a kerrison helping to further decompress the L5 nerve. Wound is then irrigated copiously with saline and surgiflo is used to stop any bleeding. The tubular retractor is removed and A skin incision is made over the L5/S1 level. This is confirmed under c-arm guidance. A series of dilators are passed and the tubular retractor is docked on the L5 lamina. A bovie is used to clear the soft tissue off the lamina and the L 5/S1 facet joint. A high speed jayla is then used to perform the laminectomy and take down the medial aspect of the L 5/S1 facet joint. A kerrison rongeure was then used to take down the remaining lamina and smooth the edge of the laminectomy up to the point where the ligamentum flavum attaches. Attention was then brought to the medial aspect of the facet joint. The remaining medial aspect of the superior and inferior aspect of the facet joint were taken down with the kerrison from the pedicle of L5 to S1. The facet joint had significant hypertrophy. Attention was then brought to the Ligamentum Flavum. The ligament was taken down from the lamina of L5 to S1 and out medially to the remaining facet joint. The ligament was thick. The dura was then exposed. The dura was in good repair. The L5 nerve was then traced with a curette out the L5/S1 foramen and found to be adequately decompressed. The S1 nerve was traced with a curette around the S1 pedicle. The lateral recess was opened with a kerrison helping to further decompress the S1 nerve. Wound is then irrigated copiously with saline and surgiflo is used to stop any bleeding. The tubular retractor is removed and the wound is closed with vicryl and monocryl suture. Glue is then used to protect the wound. A sterile dressing is then placed. Patient was then placed in the supine position and transferred to the PACU in stable condition.
--- NOTE | 2022-03-26 11:10 | SUR.PHASEI ---
1054 PT TO PACU SLEEPY BUT AWAKES TO VOICE, PT MOANING, RESTLESS, MOVES BILAT FEET TO COMMAND, PT C/O OF PAIN SEE FACE SCALE OF 9 SEE MED GIVEN MONITOR SR NO ECTOPY, IV TO LT WRIST #20 WITH NS 300ML PATENT AT KVO RATE PER GRAVITY, ID BAND TO RT WRIST , PT ID'D WITH 2 IDENTIFIERS. DRESSING TO LOWER BACK D/I , BILAT SCDS ON . 1100 MED GIVEN FOR PAIN , PT AWAKE VERBALIZING APPROPRIATELY.
--- NOTE | 2022-03-26 11:19 | SUR.PHASEI ---
PT AWAKE ALERT TAKING ICE CHIPS ,PT REQUESTS COFFEE TO SIP IN, PT DRESSING UNCHANGED. WILL GIVE REPORT TO OPS NURSE.
--- NOTE | 2022-03-26 14:55 | ANE.PACU2 ---
Inpatient post-anesthesia follow up: Airway intact: Yes Vital signs: Temperature 98.4 F Pulse Rate 74 Respiratory Rate 16 Blood Pressure 133/86 Pulse Oximetry 97 Oxygen Delivery Me thod Room Air Oxygen Flow Rate 8 Fraction of Inspir ed Oxygen Hydration adequate: Yes Nausea and vomiting: No Pain level: 3 Mental status: Baseline
== END 2022-03-26 12:02 | disposition home or self-care (01) ==
PROVIDERS: Anesthesiology; PCP Family Medicine; Visit Provider Orthopaedic Surgery
PROC: (CPT 63005; principal; 2022-03-26 09:50)
DX: M48.062 Spinal stenosis, lumbar region with neurogenic claudication (principal); J44.9 Chronic obstructive pulmonary disease, unspecified; I10 Essential (primary) hypertension; Z82.49 Family history of ischemic heart disease and other diseases of the circulatory system; F17.210 Nicotine dependence, cigarettes, uncomplicated
CPT/HCPCS: 63047; 63048; 72020; 76000; 80048; 85025; J1100; J1170; J2250; J2405; J2704; J2710; J3010; J3490; J7030

== ENCOUNTER 2022-08-06 10:27 | Outpatient (CLI) | payer MEDICAID, SELFPAY ==
--- NOTE | 2022-08-06 10:34 | CT_ITS ---
WS: [id number] CT CHEST TECHNIQUE: Contrast enhanced CT of the chest with coronal and sagittal reformatted images. CLINICAL INFORMATION: HEMOPTYSIS/NICOTINE DEPENDENCE COMPARISON: None. DLP: 258.[address] scans at [facility] use at least one of these dose optimization techniques: automated e xposure control; mA and/or kV adjustment per patient size (includes targeted exams where dose is matc hed to clinical indication); or iterative reconstruction. FINDINGS:Irregular spiculated lesion RIGHT lower lobe measuring 7 mm. This has a suspicious appearanc e and recommend [address] follow-up. Ovoid groundglass opacity RIGHT lower lobe measuring 6.5 mm. Lungs are otherwise well aerated. No acu te pulmonary infiltrates. Normal caliber thoracic aorta. Normal caliber descending thoracic aorta. Prominent ectatic main pulmo nary artery measuring 3.5 CM. Normal thyroid gland. No mediastinal or hilar lymphadenopathy. No axill jannette lymphadenopathy. Glands are normal. Hepatomegaly diffuse fatty infiltration the liver. Enhancing lesion RIGHT hepatic lobe nonspecific but likely represents a hemangioma measuring 8 mm. Normal portal vein and splenic ve in. Normal GE junction. CT/CT chest w con* [id number] IMPRESSION: 1. Irregular spiculated lesion RIGHT lower lobe measuring 7 mm. This has a irma picious appearance recommend [address] follow-up. 2. Ovoid groundglass opacity RIGHT lower lobe measuring 6.5 mm. 3. No mediastinal or hilar lymphadenopathy. 4. Hepatomegaly with diffuse fatty infiltration liver. Coarse hepatic attenuat ion. Recommend correlation with liver function tests. 5. Enhancing lesion in the RIGHT hepatic lobe measuring 8.5 mm nonspecific but likely incidental hemangioma. 6. Partially visualized hepatic cyst or hemangioma in the LEFT hepatic lobe ne ar the diaphragm measuring 16 mm. Fleischner Society Guidelines Chest CT Fleischner Society guidelines for follow-up and management of incidental pulmon jannette nodule (Radiology 2005; 237:395-400): Nodule 7 - 8 mm: LOW-RISK patient (minimal or absent history of smoking and oth er known risk factors): Initial follow-up CT at 6-12 months then at 18-24 month s if no change. HIGH-RISK patient (history of smoking or other known risk factors): Initial fol low-up CT at 3-6 months, then at 9-12 months and 24 months if no change.
[2022-08-06] MEDS: iohexol 350 mg/mL 500 mL Btl (per mL) IV (10:41)
== END 2022-08-06 10:28 | disposition home or self-care (01) ==
LOC: RAD 10:27
PROVIDERS: PCP Family Medicine; Visit Provider Family Medicine
DX: R04.2 Hemoptysis (principal); F17.200 Nicotine dependence, unspecified, uncomplicated; J98.4 Other disorders of lung; R16.0 Hepatomegaly, not elsewhere classified; K76.0 Fatty (change of) liver, not elsewhere classified; K76.9 Liver disease, unspecified
CPT/HCPCS: 71260; Q9967

== ENCOUNTER 2022-09-22 08:50 | Outpatient (CLI) | payer MEDICAID, SELFPAY ==
--- NOTE | 2022-09-22 | ECG_ITS ---
[facility] Test Date: 2022-09-22 Pat Name: Derek Roberts Department: Room: Gender: Male Tea Bag Packer: Kelsey Salazar : 1990 Requested By: Veronica Roldan Order Number: [id number] Antonio MD: Karen Gabriel M.D. Interpretive Statements NAME OF STUDY: LEXISCAN SESTAMIBI STRESS TEST INDICATION: Chest Pain PROCEDURE: At the baseline, the EKG revealed normal sinus rhythm with a heart rate of 68 bpm. The baseline heart was 68 bpm with a blood pressue of 113/74 mm of Hg Lexiscan was infused over a period of 20 seconds. A total of 0.4 milligrams of Lexiscan was infused. The stress phase was continued for a total of 5 minutes. Heart rate at the end of the stress phase was 100 bpm with a blood pressure 142/75 mm of Hg. The EKG at the peak infusion revealed no significant changes. Sestamibi was injected 20 seconds after the Lexiscan infusion. Heart rate at the end of the recovery phase was 97 bpm with a blood pressure of 124/75 mm of Hg. CONCLUSION: 1. No significant EKG changes with the LexiScan infusion 2. No LexiScan induced chest pain or cardiac arrhythmia 3. Normal blood pressure and heart rate response 4. Sestamibi/sestamibi perfusion scan pending; see separate report. Electronically Signed On 09-26-2022 23:33:54 CDT by Karen Gabriel M.D. [email or web address]
[2022-09-22 09:23] VITALS: BMI 24.3
--- NOTE | 2022-09-22 09:25 | NMCV_ITS ---
NM candi perf SPECT r/s* [id number] Derek Roberts Age: 31 Gender: M : 1990 Exam Date: 09/22/2022 10:17 Ordering Phys: Veronica Roldan CLASSROOM INSTRUCTIONAL AIDE Technologist: SHAYY Baker Exam [facility]: [facility] Indications: CHEST PAIN STRESS TEST Please see separate stress test report in [facility] for full findings IMAGE PROTOCOL Rest/Stress 1 Lexiscan Day Radiopharmaceutical Dose (mCi) Administration Site Administered by Rest: Tc-99m 11.0 IV Rissa Garza, SHAYY Sestamibi Stress:Tc-99m 33.0 IV Rissa Garza, MAT LINKER Sestamibi Rest: 22-Sep-2022 60 Discovery 630 Stress: 22-Sep-2022 30 Discovery 630 0.4mg Lexiscan. Images obtained in supine and prone position. SPECT RESULTS Technical Quality: Excellent Raw Data Analysis: Normal Image Corrections: No attenuation or motion correction applied Summed Stress Score: 1 Summed Rest Score: 4 Summed Difference Score: 0 PERFUSION FINDINGS Small areas of slightly decreased tracer uptake were noted in the LV apex and apical inferior regions. No significant reversibility was noted in these regions. FUNCTIONAL RESULTS (calculated via Gated SPECT) Stress Image LV EF (%): 54 Stress EDV (mL):145 TID: 1.09 Stress ESV (mL):67 FUNCTIONAL FINDINGS: Segmental wall motion analysis revealing no gross wall motion abnormalities IMPRESSIONS 1. Myocardial perfusion imaging revealing small areas of slightly decreased persistent tracer uptake in the apical inferior and apical segments. No significant reversibility was noted in these regions. 2. Normal LV ejection fraction of 54%. 3. LV wall motion analysis revealing no gross wall motion abnormalities. 4. Normal LV volume. Low probability for coronary ischemia, based on the above findings No similar previous studies are available for comparison Dr Karen Gabriel MD [facility] (Electronically Signed) Final Date: 22 September 2022 13:18 S
[2022-09-22 11:00] VITALS: BP 124/75; PULSE 90
== END 2022-09-22 08:51 | disposition home or self-care (01) ==
LOC: CDL 08:53
PROVIDERS: Family Provider Internal Medicine Cardiovascular Disease; PCP Family Medicine; Visit Provider Nurse Practitioner Family
DX: R07.9 Chest pain, unspecified (principal)
CPT/HCPCS: 36415; 78452; 93017; 96374; A9500

== ENCOUNTER 2023-09-16 08:36 | Outpatient (CLI) | payer MEDICAID, SELFPAY ==
--- NOTE | 2023-09-16 09:30 | US_ITS ---
WS: [id number] RIGHT UPPER QUADRANT ULTRASOUND HISTORY: abdominal pain COMPARISON: None available. Liver: 15.8 cm in length. Normal size liver and echogenicity. No bile duct dilatation or mass. Portal Vein: Normal hepatopetal flow with monophasic waveform. Gallbladder: Normally distended gallbladder with no stones or wall thickening. CBD: 0.3 cm Pancreas: Normal size and echogenicity. Right kidney: 10.8 cm in length. Normal size and echogenicity. No hydronephrosis or mass. Aorta and IVC: Unremarkable abdominal aorta and IVC. No ascites. IMPRESSION: Normal RIGHT upper quadrant ultrasound.
== END 2023-09-16 08:37 | disposition home or self-care (01) ==
LOC: RAD 08:37
PROVIDERS: Family Provider Internal Medicine Cardiovascular Disease; PCP Family Medicine; Visit Provider Surgery
DX: R10.9 Unspecified abdominal pain (principal)
CPT/HCPCS: 76705

== ENCOUNTER 2023-09-21 10:19 | Day surgery (SDC) | payer MEDICAID, SELFPAY ==
[2023-09-21 10:37] VITALS: BP 125/71; PULSE 54; RESP 18; TEMP 36.7; O2SAT 98
[2023-09-21] MEDS: sodium chloride 0.9% 1,000 ML 30 ML IV (10:49)
--- NOTE | 2023-09-21 11:15 | ANES.PREANE2 ---
Pre-Anesthetic Assessment Height/Weight: Height 1.75 m Weight 76.204 kg Temp Pulse Resp BP Pulse Ox O2 Del Method 98.1 F 54 L 18 125/71 98 Room Air 09/21/23 10:37 09/21/23 10:37 09/21/23 10:37 09/21/23 10:37 09/21/23 10:37 09/21/23 10:37 Preop Diagnosis: GERD, dysphagia, epigasgtric pain Operation Date: 09/21/23 11:30 Proposed Procedures p 74192 egd balloon dialation K21.9, R13.10,R10.13(Not Applicable) - Calvin Conley DO Familial anesthetic complications: None Was Beta Jasmin taken within 24 hours: N/A Was Clonidine taken within 24 hours: N/A Last intake: Intake Last Liquid Date 09/21/23 Last Liquid Time 07:30 Last Solid Date 09/20/23 Last Solid Time 22:30 Social Tobacco (Marijuana daily) and No alcohol 1 pack(s) per day 20 pack years Exam alert, oriented x 3 and regular rate & rhythm BBS diminished Airway Submandibular: within normal limits Cervical ROM: within normal limits Mallampati: Class III Comments: Comments: Edentulous Otero History/ROS No significant history except as noted and No significant complaints Pulmonary Asthma, Chronic Obstructive Pulmonary Disease, Cough, Exertional Dyspnea and Sleep Apnea CV/HEM Hypertension CONCLUSIONS LV systolic function is normal with EF 55 to 60%. Trace mitral regurgitation is seen. Trace tricuspid regurgitation is seen. No comparison studies are available CONCLUSION: 1. No significant EKG changes with the LexiScan infusion 2. No LexiScan induced chest pain or cardiac arrhythmia 3. Normal blood pressure and heart rate response 4. Sestamibi/sestamibi perfusion scan pending; see separate report. None reported Hepatic None reported GI Gastroesophageal Reflux Disease (None this AM) Metabolic None reported Musc/skel Lower Back Pain and Osteoarthritis/DJD Lumbar surgery Neuropsych Anxiety, Depression and Neuropathy Anesthetic Plan ASA status: 3 Anesthesia: Anesthesia Evaluation, General and MAC Risk of > 500 ml blood loss (7ml/kg in children): No Medications/Allergies Home Medications Medication Instructions Recorded Confirmed Last Taken Type albuterol sulfate 2.5 mg/3 mL 2.5 mg inhalation QID PRN 09/12/20 09/19/23 09/20/23 History (0.083 %) solution for nebulization shortness of breath or wheezing albuterol sulfate 90 mcg/actuation 2 puff inhalation Q6H PRN sob 09/12/20 09/19/23 09/20/23 History aerosol inhaler (ProAir HFA) aspirin 81 mg tablet,delayed 81 mg PO DAILY 09/12/20 09/19/23 09/20/23 History release nitroglycerin 0.4 mg sublingual 0.4 mg sublingual Q5M PRN Chest 09/12/20 09/19/23 09/20/23 History tablet Pain budesonide 160 mcg-glycopyr 9 2 inh inhalation BID #10.7 grams 09/18/21 09/19/23 09/20/23 Rx mcg-formot 4.8 mcg/actuation HFA inhaler (Breztri Aerosphere) losartan 25 mg tablet 25 mg PO DAILY 11/17/21 09/19/23 09/20/23 History gabapentin 600 mg tablet 600 mg PO TID #90 tabs 02/08/22 09/19/23 09/20/23 Rx meloxicam 15 mg tablet 15 mg PO DAILY #30 tabs 02/08/22 09/19/23 09/20/23 Rx duloxetine 60 mg capsule,delayed 120 mg PO DAILY 08/31/22 09/19/23 09/20/23 History release isosorbide mononitrate 30 mg 60 mg PO DAILY 08/31/22 09/19/23 09/20/23 History tablet,extended release 24 hr montelukast 10 mg tablet 10 mg PO DAILY #30 tabs 08/31/22 09/19/23 09/20/23 Rx (Singulair) pantoprazole 40 mg tablet,delayed 40 mg PO BID 6 weeks #84 tabs 09/09/23 09/19/23 09/20/23 Rx release (Protonix) Allergies Allergy/AdvReac Type Severity Reaction Status Date / Time No Known Allergies Allergy Verified 08/31/22 12:51 Current Medications Generic Name Dose Route Start Last Admin Trade Name Freq PRN Reason Stop Dose Admin Sodium Chloride 1,000 mls @ 30 mls/hr 09/21/23 06:30 09/21/23 10:49 Sodium Chloride 0.9% IV 09/22/23 06:29 30 mls/hr .Q24H OKSANA Administration PFSH Anesthesia Medical History (Updated 09/09/23 @ 10:47 by Calvin Conley DO) Broken back Scoliosis CAD (coronary artery disease) Atherosclerotic heart disease Hypertension Dyspnea on exertion Chronic obstructive pulmonary disease Surgical History (Updated 09/09/23 @ 10:47 by Calvin Conley DO) No significant past surgical history No history of previous surgery History of lumbar surgery Hx of circumcision Family History Mother No problems noted. Father CAD (coronary artery disease), Onset Age: 30 Grandmother Clotting disorder Grandfather CAD (coronary artery disease) Clotting disorder Lung disease Family/Other Diabetes Lung disease Suicide Other Cancer Denies family history of Dementia Anesthesia complication Bleeding disorder Stroke Social History Smoking and tobacco/nicotine status: current every day tobacco/nicotine user cigarettes Packs smoked per day: 2 Years cigarettes smoked: 21 [ Other cigarette details: started at age 10] Quit status (tobacco/nicotine): considering quitting Alcohol intake: never Substance/Drug Use: current Substance/Drug use frequency: daily Lives independently: Yes Household members: spouse Marital status: Current occupational status: unemployed Do you think of yourself as: Straight/Heterosexual Data Anesthesia Cardiac Studies: Echocardiogram 03/24/22 Sestamibi Stress Test (Cardiology) 09/22/22
--- NOTE | 2023-09-21 12:04 | W.PM.OPSUD ---
Surgery/Procedure H&P Update DATE OF PROCEDURE: September 21, 2023 DATE H&P PERFORMED: 09/09/23 H&P UPDATE INFORMATION: I have reviewed H&P completed within last 30 days, I have examined patient prior to procedure and No changes to prior documentation PREOP DIAGNOSIS: GERD, dysphagia, epigasgtric pain PLANNED PROCEDURE: Operation Date: 09/21/23 11:30 Proposed Procedures p 77449 egd balloon dialation K21.9, R13.10,R10.13(Not Applicable) - Calvin Conley DO
[2023-09-21 12:18] VITALS: BP 116/72; PULSE 62; RESP 20; TEMP 36.6; O2SAT 95
[2023-09-21 12:32] VITALS: BP 132/86; PULSE 63; RESP 18; O2SAT 96
--- NOTE | 2023-09-21 15:01 | ANE.PACU2 ---
Inpatient post-anesthesia follow up: Vital signs: Temperature 98 F Pulse Rate 63 Respiratory Rate 18 Blood Pressure 132/86 Pulse Oximetry 96 Oxygen Delivery Me thod Room Air Oxygen Flow Rate 3 Fraction of Inspir ed Oxygen Hydration adequate: Yes Nausea and vomiting: No Mental status: Baseline Additional Comments: no apparent anesthetic complicaitons noted
== END 2023-09-21 12:49 | disposition home or self-care (01) ==
PROVIDERS: PCP Family Medicine; Visit Provider Surgery
PROC: 0DJ08ZZ Inspection of Upper Intestinal Tract, Via Natural or Artificial Opening Endoscopic (ICD-10-PCS; CPT 43235; 2023-09-21 11:30)
DX: R13.10 Dysphagia, unspecified (principal); K21.9 Gastro-esophageal reflux disease without esophagitis; R10.13 Epigastric pain; K29.50 Unspecified chronic gastritis without bleeding; F17.210 Nicotine dependence, cigarettes, uncomplicated; J44.9 Chronic obstructive pulmonary disease, unspecified; G47.30 Sleep apnea, unspecified; I10 Essential (primary) hypertension; Z79.82 Long term (current) use of aspirin
CPT/HCPCS: 43239; 88305; 88342; J2704; J7030

== ENCOUNTER 2023-10-27 08:46 | Outpatient (CLI) | payer MEDICAID, SELFPAY ==
--- NOTE | 2023-10-27 10:00 | NM_ITS ---
WS: [id number] NUCLEAR MEDICINE HIDA SCAN WITH GALLBLADDER EJECTION FRACTION HISTORY: abdominal pain COMPARISON: Gallbladder ultrasound 09/16/2023 TECHNIQUE: The patient was intravenously injected with 7.2 mCi of TC99m Mebrofenin. Immediate imaging over the right upper quadrant was followed by 5 minute image and additional images for a total of 60 minutes. Heterogeneous uptake of radionuclide within the liver. No retention of radionuclide. No masses were i dentified within the liver on a recent ultrasound from 09/16/2023. Activity identified in the gallbladder at 15 minutes and well distended by 60 minutes. Activity in the proximal small bowel was seen by 60 minutes. Good washout of the radiotracer from the liver by 60 minutes. The patient then drank 8 ounces of Ensure Plus. Ejection fraction at 60 minutes was 70%. Normal GB ej ection fraction is 35-75%. Post fatty meal symptoms: None. IMPRESSION: 1. Normal HIDA scan. 2. Normal gallbladder ejection fraction.
== END 2023-10-27 08:47 | disposition home or self-care (01) ==
PROVIDERS: PCP Family Medicine; Visit Provider Surgery
DX: R10.13 Epigastric pain (principal)
CPT/HCPCS: 78227; A9537

== ENCOUNTER 2024-01-17 07:31 | Outpatient (CLI) | payer MEDICAID, SELFPAY ==
--- NOTE | 2024-01-17 08:00 | CTR_ITS ---
PROCEDURE INFORMATION: Exam: CT Chest Without Contrast; Diagnostic Exam date and time: 01/17/2024 8:08 AM Age: 33 years old Clinical indication: Condition or disease; Lung condition and disease; Pulmonary nodule, solitary; Additional info: Annual f/u TECHNIQUE: Imaging protocol: Diagnostic computed tomography of the chest without contrast. Radiation optimization: All CT scans at this facility use at least one of these dose optimization techniques: automated exposure control; mA and/or kV adjustment per patient size (includes targeted exams where dose is matched to clinical indication); or iterative reconstruction. COMPARISON: CT chest w con* [id number] 08/06/2022 10:45 AM RADIATION DOSE METRICS: Total DLP (mGy-cm): 278.11 FINDINGS: Thyroid: Thyroid is normal. Lungs: Stable 0.6 cm ground-glass pulmonary nodule in the right lower lobe (axial series 4, image 39). Decreased size and conspicuity of 0.4 cm now subsolid pulmonary nodule compared to 08/06/2022. This previously measured up to 0.4 cm. This likely represents a small lymph node. No focal consolidation. No new or suspicious pulmonary nodules or masses. Mild paraseptal emphysematous changes about the lung apices, stable to minimally worsened compared to prior. Pleural spaces: No pleural effusion. No pneumothorax. Heart: Heart is normal in size. No pericardial effusion. Coronary arteries: No significant coronary artery calcification. Lymph nodes: No suspicious lymphadenopathy. Vasculature: Thoracic aorta is normal in appearance. Bones/joints: No acute osseous findings. Soft tissues: Visualized superficial soft tissues are within normal limits. CT/CT chest con [id number] IMPRESSION: 1. Stable to decreased size and conspicuity of pulmonary nodules compared to 08/06/2022, as above. No additional follow-up indicated. 2. No new or suspicious pulmonary nodules or masses. 3. Mild paraseptal emphysematous changes about the lung apices, stable to minimally worsened compared to prior.
== END 2024-01-17 07:32 | disposition home or self-care (01) ==
LOC: RAD 07:31
PROVIDERS: PCP Family Medicine; Visit Provider Internal Medicine Pulmonary Disease
DX: R91.8 Other nonspecific abnormal finding of lung field (principal)
CPT/HCPCS: 71250

== ENCOUNTER → 2024-04-10 08:37 | Outpatient (BNVA) | payer MEDICAID, SELFPAY | PROVIDERS: PCP Family Medicine; Visit Provider Orthopaedic Surgery | DX: M54.2 Cervicalgia (principal) | CPT/HCPCS: 72050 ==

== ENCOUNTER → 2024-05-09 09:29 | Outpatient (BNVA) | payer MEDICAID, SELFPAY | PROVIDERS: PCP Family Medicine; Visit Provider Specialist | DX: M25.512 Pain in left shoulder (principal); G89.29 Other chronic pain | CPT/HCPCS: 73030 ==